=== PATIENT | male | born 1985 | race Caucasian/White ===

== ENCOUNTER 2023-11-25 09:46 | Emergency (ER) | payer OTHER ==
[~2023-11-25] VITALS: Ht 177.8 cm; Wt 90.9 kg
[2023-11-25 10:12] VITALS: BP 139/87; PULSE 69; TEMP 98; O2SAT 98
[2023-11-25 11:24] VITALS: RESP 18
[2023-11-25] MEDS: ketorolac trometh. 30mg/ml inj. IM ONE (11:24)
== END 2023-11-25 12:01 | disposition home or self-care (01) ==
LOC: ER 09:47
DX: S86.112A Strain of other muscle(s) and tendon(s) of posterior muscle group at lower leg level, left leg, initial encounter (principal); Z88.0 Allergy status to penicillin; X58.XXXA Exposure to other specified factors, initial encounter; Y93.89 Activity, other specified; Y92.89 Other specified places as the place of occurrence of the external cause; Y99.8 Other external cause status
CPT/HCPCS: 96372; 99284; J1885; L4360; A6449